=== PATIENT | female | born 1975 | race American Indian/Alaskan Native ===

== ENCOUNTER 2021-03-26 14:39 | Outpatient (CLI) | payer BC ==
--- NOTE | 2021-03-27 07:55 | Ultrasound Report ---
ULTRASOUND GUIDED RIGHT BREAST BIOPSY, 03/26/2021 CLINICAL INFORMATION / INDICATION: BREAST LUMP N63.11. COMPARISON: Right breast ultrasound performed on 02/12/2021. PROCEDURE: Risks, benefits, and indications to the procedure were discussed with the patient in detail, includin g bleeding, infection, hematoma formation, and inadequate tissue sampling. The patient agreed to proc eed with both verbal and written consent. A timeout procedure was performed with two patient identifi ers. Preliminary ultrasound demonstrated a wider than tall heterogeneous mass in the 11:00 position 7 cm f rom the nipple at the site of the palpable abnormality measuring 4.6 x 1.8 x 4.5 cm. The breast was p repped and draped in the usual sterile fashion. Lidocaine 1% with and without epinephrine were used f or local anesthesia. Under direct ultrasound guidance, multiple core samples were obtained of the rig ht breast mass. A biopsy marker was then placed. Biopsy device was removed and hemostasis achieved w ith manual pressure. A sterile dressing was applied to the skin. The patient tolerated the procedure without difficulty. No complications were encountered. Postbiopsy instructions were discussed with the patient and given in writing. Specimens were sent to pathology. IMPRESSION: 1. Technically successful ultrasound guided right breast biopsy. Biopsy results are pending and will be reported in an addendum. Signer Name: Que Johnson MD Signed: 03/26/2021 4:13 PM Workstation Name: [id number]
== END 2021-03-26 14:40 | disposition home or self-care (01) ==
LOC: SPVWC 14:39
PROVIDERS: ATTEND Surgery
DX: N63.11 Unspecified lump in the right breast, upper outer quadrant (principal); N64.89 Other specified disorders of breast
CPT/HCPCS: 88305